=== PATIENT | female | born 1995 | race Caucasian/White ===

== ENCOUNTER 2021-04-06 21:19 | Emergency (ER) | payer OTHER, SELFPAY ==
--- NOTE | ~2021-04-06 | XR_ITS ---
EXAMINATION: XR chest 2V 04/06/2021 21:51 INDICATION: Chest palpitations PROCEDURE: 2 view chest COMPARISON: No prior studies for comparison. FINDINGS: The lungs are clear. The cardiomediastinal silhouette is within normal limits. There are no pleural effusions. There is no pneumothorax suspected. IMPRESSION: 1: NO ACUTE CARDIOPULMONARY DISEASE. Reviewed, dictated and finalized at location A.
--- NOTE | 2021-04-06 21:23 | ECG_ITS ---
Measurements Intervals [place] Rate: 83 P: 63 SC: 132 QRS: 75 QRSD: 106 T: 57 QT: 381 QTc: 449 Interpretive Statements SINUS RHYTHM INCOMPLETE RIGHT BUNDLE BRANCH BLOCK BASELINE ARTIFACT- I, II, III, AVL, V1-V2 BORDERLINE ECG Electronically Signed On 04-07-2021 7:04:00 CDT by Sabino Espinal D.O.
[2021-04-06 21:30] VITALS: BP 130/70; PULSE 93; RESP 18; TEMP 36.8; O2SAT 100
[2021-04-06 21:47] LABS: Basophils Absolute Auto 0.1 K/mm3 (0.0-0.1); Basophils Percent Auto 0.7 % (0.2-1.2); Eosinophils Absolute Auto 0.2 K/mm3 (0-0.3); Eosinophils Percent Auto 1.9 % (0-4.4); Hematocrit 39.5 % (37.0-47.0); Hemoglobin 13.5 g/dL (12.0-15.0); Immature Granulocyte Absolute 0.02 K/mm3 (0.00-0.031); Immature Granulocyte Percent A 0.2 % (0-0.5); Lymphocytes Percent Auto 36.3 % (18.3-44.2); Mean Corpuscular HGB Conc 34.2 g/dl (32-36); Mean Corpuscular Hemoglobin 33.1 pg (26-34); Mean Corpuscular Volume 96.8 fl (80-100); Mean Platelet Volume 10.5 fl (7.4-10.4); Monocytes Absolute Auto 0.7 K/mm3 (0.1-0.6); Monocytes Percent Auto 7.7 % (2.6-8.5); Neutrophils Absolute Auto 4.7 K/mm3 (1.3-6.7); Neutrophils Percent Auto 53.2 % (45.5-73.1); Platelet Count Result 300 k/mm3 (150-375); Red Blood Count 4.08 M/mm3 (4.2-5.4); Red Cell Distribution Width 11.9 % (11.5-14.5); White Blood Count 8.8 K/mm3 (4.5-10.0)
[2021-04-06 21:58] LABS: Anion Gap 9 mmol/L (8-16); Blood Urea Nitrogen 13 mg/dL (7-17); Calcium 8.9 mg/dL (8.4-10.2); Carbon Dioxide 24 mmol/L (22-30); Chloride 107 mmol/L (98-107); Estimated CRCL calculation 91 ml/min; Estimated Glomerular Filt Rate > 60; Glucose 97 mg/dL (65-110); INR 0.9; Potassium 3.8 mmol/L (3.4-5.0); Prothrombin Time 12.2 Seconds (11.1-14.7); Sodium 140 mmol/L (137-145)
[2021-04-06 21:59] LABS: Partial Thromboplastin Time 26.4 SECONDS (22.3-36.8)
[2021-04-06 22:09] LABS: Troponin I < 0.012 ng/mL (0.000-0.034)
--- NOTE | 2021-04-06 23:26 | ED.ARRPALP ---
HPI - Arrhythmia/Palpitations General Chief Complaint: Arrhythmia/Palpitations Stated Complaint: Heart palpitations, chest pains Time Seen by Provider: 04/06/21 22:44 Source: patient Mode of arrival: ambulatory Limitations: no limitations History of Present Illness HPI narrative: 26-year-old female with no significant past medical history complaining of sudden onset of palpitations while watching TV with bilateral hand tingling, and tightness in the left side of her neck. Patient arrives speaking full sentences without difficulty normal sinus rhythm on the monitor with a pulse of 88. States no palpitations currently last about half hour. Denies caffeine, denies workout substances denies new medications. States she has had her thyroid checked in the past and it was fine. Last had the symptoms couple of months ago but did not have them evaluated. No syncope, no tearing chest pain, last normal menstrual period 3 weeks ago, no heavy periods, MD complaint: rapid heart beat and palpitations Onset (ago): hour(s) (4) Duration: now resolved Severity: moderate Context: occurred during rest Associated symptoms: shortness of breath, anxiety (during episode) and paresthesias (bilateral hands left sided neck with tightness) Related Data Allergies Allergy/AdvReac Type Severity Reaction Status Date / Time adhesive AdvReac Rash Verified 04/06/21 22:57 Review of Systems Review of Systems: CONSTITUTIONAL: no fever, no weight loss, no confusion EYES: no vision changes, no eye pain ENT: no rhinorrhea, no sore throat, no difficulty swallowing CARDIOVASCULAR: no chest pain, no leg edema, positive for palpitations RESPIRATORY: no cough, no shortness of breath, no hemoptysis GASTROINTESTINAL: no abdominal pain, no nausea, no vomiting, no diarrhea GENITOURINARY: no flank pain, no dysuria, no hematuria SKIN: no rash, no jaundice MUSCULOSKELETAL: no back pain, no trauma. NEUROLOGIC: No headache, no dizziness, no focal weakness, positive for paresthesias PSYCHIATRIC: No hallucinations, no suicidal ideation Exam Narrative: General: alert, afebrile, answering all questions appropriately Head: normocephalic, atraumatic Eyes: EOMI bilaterally, anicteric, no injection ENT: moist mucous membranes, oropharynx patent, no rhinorrhea Neck: supple, trachea midline, no JVD Chest: equal chest rise bilaterally, no chest wall trauma noted Lungs: clear to auscultation bilaterally, respirations unlabored CV: regular rate, no ESTRADA B, calf size equal bilaterally EXT: no deformity noted, moving all extremities equally Skin: warm, dry, no pallor Neuro: alert, oriented x 3; CN 2-12 grossly intact, no dysarthria Psych: affect appropriate, though content normal Course Course Emergency Course: Pulse remained under 100 in the ED. No PACs, EKG reassuring. Patient did not have symptoms in the ED. Vital Signs Vital signs: Vital Signs Temperature 36.8 C 04/06/21 21:30 Pulse Rate 93 04/06/21 21:30 Respiratory Rate 18 04/06/21 21:30 Blood Pressure 130/70 04/06/21 21:30 Pulse Oximetry 100 04/06/21 21:30 Temperature 36.8 C 04/06/21 21:30 Pulse Rate 88 04/07/21 00:32 Respiratory Rate 14 04/07/21 00:32 Blood Pressure 123/71 04/07/21 00:32 Pulse Oximetry 100 04/07/21 00:32 MDM - Arrhythmia/Palpitations Differential Diagnosis Differential diagnosis: Likely palpitations, anxiety, sinus tachycardia and other (Anemia, dehydration, electrolyte disorder, hyperthyroidism) Medical Records Attestation: I reviewed the patient's medical records. Lab Data Attestation: I reviewed the patient's lab results. Result diagrams: 04/06/21 21:39 04/06/21 21:39 Labs: Lab Results 04/06/21 04/06/21 04/06/21 Range/Units 21:39 21:39 21:39 WBC 8.8 (4.5-10.0) K/mm3 RBC 4.08 L (4.2-5.4) M/mm3 Hgb 13.5 (12.0-15.0) g/dL Hct 39.5 (37.0-47.0) % MCV 96.8 (80-100) fl MCH 33.1 (26-34) pg MCHC 34.2 (32-36
[2021-04-07 00:32] VITALS: BP 123/71; PULSE 88; RESP 14; O2SAT 100
== END 2021-04-07 00:09 | disposition home or self-care (01) ==
PROVIDERS: Emergency Medicine; Emergency Provider Emergency Medicine; PCP Family Medicine
DX: R00.2 Palpitations (principal); I45.10 Unspecified right bundle-branch block
CPT/HCPCS: 36415; 71046; 80048; 84484; 85025; 85610; 85730; 93005; 99284